=== PATIENT | female | born 1955 | race Caucasian/White ===

== ENCOUNTER 2018-03-23 16:46 | Emergency (ER) | payer BC ==
--- NOTE | 2018-03-23 17:09 | EDM.PDOC ---
ED HPI GENERAL MEDICAL PROBLEM - General Chief Complaint: Bite:Animal, Insect Stated Complaint: cat bite Time Seen by Provider: 03/23/18 16:57 Source of Information: Reports: Patient History Limitations: Reports: No Limitations - History of Present Illness INITIAL COMMENTS - FREE TEXT/NARRATIVE: Patient comes in at the instruction of her vet after a cat bite. Patient's pit bull was attacked by a known cat that was protecting kittens. Patient was bitten on the left forearm after trying to intervene. Cat has not had any vaccinations as it is an indoor cat though clearly it was able to get outside to become . Cat is being quarantined. No complaints of numbness or tingling to hands, full range of motion to wrist, hand, and fingers. Onset: Today, Sudden - Related Data Allergies Allergy/AdvReac Type Severity Reaction Status Date / Time propoxyphene HCl Allergy Other Verified 07/26/15 17:57 [From Mary] Home Meds: Home Meds Aspirin [Halfprin] 81 mg PO BEDTIME 05/08/15 [History] Multivitamin with Minerals [Multivitamins with Minerals] 1 tab PO BEDTIME [History] Omeprazole [Prilosec] 20 mg PO BEDTIME 05/08/15 [History] buPROPion HCl [Wellbutrin Xl] 1 tab PO BEDTIME 05/08/15 [History] Escitalopram [Lexapro] 10 mg BEDTIME 01/03/17 [History] Acetaminophen [Tylenol] 650 mg PO Q4H PRN tablet 12/28/17 [Rx] Azithromycin 500 mg PO DAILY #3 tablet 12/28/17 [Rx] Past Medical History HEENT History: Reports: None Cardiovascular History: Reports: None Respiratory History: Reports: None Gastrointestinal History: Reports: Other (See Below) Other Gastrointestinal History: esophageal dilatation Genitourinary History: Reports: None Musculoskeletal History: Reports: Back Pain, Chronic Neurological History: Reports: TIA Psychiatric History: Reports: Depression Endocrine/Metabolic History: Reports: None Oncologic (Cancer) History: Reports: Cervix - Past Surgical History Female Surgical History: Reports: Hysterectomy Social & Family History - Family History Family Medical History: Noncontributory - Caffeine Use Caffeine Use: Reports: Coffee - Living Situation & Occupation Living situation: Reports: Occupation: Employed ED ROS GENERAL - Review of Systems Review Of Systems: See Below Constitutional: Reports: No Symptoms HEENT: Reports: No Symptoms Respiratory: Reports: No Symptoms Cardiovascular: Reports: No Symptoms Endocrine: Reports: No Symptoms GI/Abdominal: Reports: No Symptoms : Reports: No Symptoms Musculoskeletal: Reports: Arm Pain (at bite site) Skin: Reports: Wound Neurological: Reports: No Symptoms Psychiatric: Reports: No Symptoms Hematologic/Lymphatic: Reports: No Symptoms Immunologic: Reports: No Symptoms ED EXAM, GENERAL - Physical Exam Exam: See Below Exam Limited By: No Limitations General Appearance: Alert, WD/WN, No Apparent Distress Extremities: Normal Range of Motion Skin Exam: Wound/Incision (small puncture wound to distal left forearm, volar surface. scrape as well where tooth dragged across skin, hematoma as well. site cleaned, antibiotic ointment and bandaid applied) Departure - Departure Time of Disposition: 17:11 Disposition: Home, Self-Care 01 Condition: Good Clinical Impression: Cat bite of forearm - Discharge Information *PRESCRIPTION DRUG MONITORING PROGRAM REVIEWED*: Not Applicable *COPY OF PRESCRIPTION DRUG MONITORING REPORT IN PATIENT STEFANI: Not Applicable Instructions: Animal Bite, [id number], Wound Infection, [id number], Amoxicillin; Clavulanic Acid tablets, Probiotics Referrals: Gill Esparza PA-C [Primary Care Provider] - Forms: ED Department Discharge Additional Instructions: Plan 1. Take full course of augmentin. 1 tablet twice a day for 7 days 2. Eat yogurt 1-2 times daily or a probiotic for the next 3-4 weeks to prevent a bacterial infection of the intestines caused by antibiotic use 3. Watch for signs of wound infection including fever, increased redness or swelling at the area, pus like drainage or a red streak going up from the site 4. Follow up with your primary as needed 5. Please call with any questions or concerns 6. Make sure the cat is quarantined to be sure it does not develop rabies. It should also receive its' vaccinations - Problem List & Annotations (1) Cat bite of forearm SNOMED Code(s): 447135623 Code(s): S51.859A - OPEN BITE OF UNSPECIFIED FOREARM, INITIAL ENCOUNTER; W55.01XA - BITTEN BY CAT, INITIAL ENCOUNTER Status: Acute Priority: Low Qualifiers: Encounter type: initial encounter Laterality: left Qualified Code(s): S51.852A - Open bite of left forearm, initial encounter; W55.01XA - Bitten by cat, initial encounter - Problem List Review Problem List Initiated/Reviewed/Updated: Yes - Assessment/Plan Assessment:: left forearm bite from cat Plan: Plan 1. Take full course of augmentin. 1 tablet twice a day for 7 days 2. Eat yogurt 1-2 times daily or a probiotic for the next 3-4 weeks to prevent a bacterial infection of the intestines caused by antibiotic use 3. Watch for signs of wound infection including fever, increased redness or swelling at the area, pus like drainage or a red streak going up from the site 4. Follow up with your primary as needed 5. Please call with any questions or concerns 6. Make sure the cat is quarantined to be sure it does not develop rabies. It should also receive its' vaccinations
[2018-03-23 17:36] VITALS: BP 136/80
== END 2018-03-23 17:11 | disposition home or self-care (01) ==
LOC: VM.ED 16:46
DX: S51.852A Open bite of left forearm, initial encounter (principal); W55.01XA Bitten by cat, initial encounter; Z79.82 Long term (current) use of aspirin; Z79.899 Other long term (current) drug therapy
CPT/HCPCS: 99283

== ENCOUNTER 2021-03-05 14:03 | Emergency (ER) | payer OTHER ==
[2021-03-05] MEDS ORDERED: Sodium Chloride 0.9% 10 ML Syringe FLUSH PRN (14:39)
[2021-03-05] MEDS: Lactated Ringers 1,000 ML IV ONE (14:50)
[2021-03-05] MEDS: Ondansetron 4 MG/2 ML SDV IV ONE (14:52)
[2021-03-05] MEDS: Morphine 4 MG/ML Syringe IVPUSH ONE (14:57)
[2021-03-05] MEDS: GI Cocktail Oral Solution 30 ML PO ONE (15:13)
[2021-03-05 15:15] LABS: ANION GAP 12.9 mmol/L (5-15); CHLORIDE,CL 104 mmol/L (98-107); SODIUM,NA 141 mmol/L (136-145)
[2021-03-05] MEDS: Iopamidol 612 MG/ML 100 ML Bottle IVPUSH ONE (15:53)
[2021-03-05] MEDS: fentaNYL 50 MCG/ML SDV IVPUSH ONE (17:15)
[2021-03-05] MEDS: Take Home: Ondansetron 4 MG Tab.DIS, 5 Tab Pack PO ONE (18:02)
[2021-03-05] MEDS: Take Home: Acetaminophen/HYDROcodone 325-5 MG, 5 Tab Pack PO ONE (18:02)
[2021-03-05 18:09] VITALS: BP 128/78; PULSE 78
== END 2021-03-05 18:16 | disposition home or self-care (01) ==
LOC: VM.ED 14:03
DX: K52.9 Noninfective gastroenteritis and colitis, unspecified (principal); Z72.0 Tobacco use; Z88.8 Allergy status to other drugs, medicaments and biological substances; Z79.899 Other long term (current) drug therapy; Z20.822 Contact with and (suspected) exposure to COVID-19
CPT/HCPCS: 74177; 80053; 81003; 83605; 83690; 84484; 85025; 86140; 87635; 93005; 96374; 96375; 99284; A9270; J2270; J2405; J3010; J7120; Q0162; Q9967; U0002

== ENCOUNTER 2021-05-30 20:32 | Emergency (ER) | payer OTHER ==
[2021-05-30 21:09] VITALS: BP 139/70; PULSE 93
[2021-05-30] MEDS ORDERED: Take Home: Sulfamethoxazole/Trimethoprim 800-160 MG Tab, 2 Tab Pack PO ONE (21:18)
[2021-05-30] MEDS ORDERED: Take Home: Phenazopyridine 95 MG Tab, 4 Tab Pack ONE (21:20)
== END 2021-05-30 21:30 | disposition home or self-care (01) ==
LOC: VM.ED 20:32
DX: N39.0 Urinary tract infection, site not specified (principal); Z88.8 Allergy status to other drugs, medicaments and biological substances; Z72.0 Tobacco use; Z86.73 Personal history of transient ischemic attack (TIA), and cerebral infarction without residual deficits
CPT/HCPCS: 81001; 87086; 87088; 87186; 99283; A9270-GY

== ENCOUNTER 2022-04-01 08:39 | Emergency (ER) | payer OTHER ==
[2022-04-01 09:15] VITALS: BP 113/66; PULSE 69
[2022-04-01] MEDS ORDERED: Acetaminophen/HYDROcodone 325-5 MG Tab PO STA (10:16)
[2022-04-01] MEDS ORDERED: Ketorolac 30 MG/ML SDV IM ONE (10:59)
[2022-04-01] MEDS ORDERED: Ondansetron 4 MG Tab.DIS PO ONE (11:46)
== END 2022-04-01 12:24 | disposition short-term general hospital (02) ==
LOC: VM.ED 08:39 → SUPCPDRO 08:39 → VM.ED 12:24
DX: S52.501A Unspecified fracture of the lower end of right radius, initial encounter for closed fracture (principal); S52.611A Displaced fracture of right ulna styloid process, initial encounter for closed fracture; Z88.8 Allergy status to other drugs, medicaments and biological substances; W18.30XA Fall on same level, unspecified, initial encounter
CPT/HCPCS: 73110-LT; 73110-RT; 96372; 99284; A9270-GY; J1885

== ENCOUNTER 2022-10-31 08:34 | Day surgery (SDC) | payer MEDICARE ==
[~2022-10-31 08:34] MED LIST: Lactated Ringers 1,000 ML IV SCH
[2022-10-31] MEDS ORDERED: fentaNYL 100 MCG/2 ML SDV ONE (10:22)
[2022-10-31] MEDS ORDERED: Propofol 200 MG/20 ML SDV ONE ×2 (10:22→10:40)
[2022-10-31 11:10] VITALS: BP 98/46; PULSE 69
[2022-10-31] MEDS ORDERED: Ondansetron 4 MG/2 ML SDV IV PRN (11:46)
== END 2022-10-31 13:05 | disposition home or self-care (01) ==
LOC: VM.SDS 08:34
PROVIDERS: ATTEND Student in an Organized Health Care Education/Training Program
DX: K52.832 Lymphocytic colitis (principal); A04.72 Enterocolitis due to Clostridium difficile, not specified as recurrent; D12.3 Benign neoplasm of transverse colon; D12.2 Benign neoplasm of ascending colon; D12.8 Benign neoplasm of rectum; E78.5 Hyperlipidemia, unspecified; K21.9 Gastro-esophageal reflux disease without esophagitis; E66.9 Obesity, unspecified; F32.A Depression, unspecified; M79.7 Fibromyalgia; F17.210 Nicotine dependence, cigarettes, uncomplicated; Z90.49 Acquired absence of other specified parts of digestive tract
CPT/HCPCS: 00811; 45380; 45385; 88305; J2405; J2704; J3010; J7120